=== PATIENT | female | born 1945 | race Caucasian/White ===

== ENCOUNTER 2018-04-02 13:26 | Emergency (ER) | payer OTHER, MEDICARE ==
[~2018-04-02] VITALS: Ht 149.9 cm; Wt 77.1 kg
[2018-04-02 13:53] VITALS: BP_SYST 146
--- NOTE | 2018-04-02 13:59 | NUR ---
Pt placed to ER waiting room in stable condition.
--- NOTE | 2018-04-02 14:57 | NUR ---
Swelling, numbness, dark discoloration to right foot with red spots to RLE x 1 month.
--- NOTE | 2018-04-02 14:57 | NUR ---
BROUGHT BACK TO BED #5, REPORT GIVEN TO SUMAYA
--- NOTE | 2018-04-02 15:00 | NUR ---
Dr. Calderon at bedside.
[2018-04-02] MEDS ORDERED: EPINEPHrine JECT 1 MG/10 ML SYR IM ONE (15:15)
[2018-04-02] MEDS ORDERED: EPINEPHrine 1 MG/ML AMP SUBCUT ONE (15:30)
[2018-04-02 15:34] LABS: BASOPHILS # (AUTO) 0.1 K/uL (0.0-0.2); BASOPHILS % (AUTO) 0.8 % (0.0-2.0); EOSINOPHILS # (AUTO) 0.2 K/uL (0.0-0.4); EOSINOPHILS % (AUTO) 2.2 % (0.0-4.0); HEMATOCRIT 44.1 % (36-48); HEMOGLOBIN 14.6 g/dL (12.0-16.0); LYMPHOCYTES # (AUTO) 1.8 K/uL (1.0-5.5); LYMPHOCYTES % (AUTO) 19.6 % (20.5-51.5); MEAN CORPUSCULAR HEMOGLOBIN 32 pg (27-31); MEAN CORPUSCULAR HGB CONC 33 % (32-36); MEAN CORPUSCULAR VOLUME 96 fL (79.0-98.0); MONOCYTES # (AUTO) 0.6 K/uL (0.0-1.0); MONOCYTES % (AUTO) 6.3 % (1.7-9.3); NEUTROPHILS # (AUTO) 6.3 K/uL (1.8-7.7); NEUTROPHILS % (AUTO) 71.1 % (40.0-70.0); PLATELET COUNT (AUTO) 348 K/uL (130-430); RED BLOOD CELL COUNT(AUTO) 4.61 MIL/uL (4.2-6.2); RED CELL DISTRIBUTION WIDTH 11.9 % (9.0-15.0)
[2018-04-02 15:42] LABS: ANION GAP 11 (5-15); CALCIUM 10.1 mg/dL (8.4-11.0); CHLORIDE 101 mmol/L (98-107); CREATININE 0.91 mg/dL (0.55-1.30); GLUCOSE 245 mg/dL (70-99); POTASSIUM 3.6 mmol/L (3.5-5.1); SODIUM SERUM 138 mmol/L (136-145); UREA NITROGEN, BLOOD 23 mg/dL (8-21)
[2018-04-02 15:45] LABS: PROTHROMBIN TIME 10.3 SECS (9.5-12.5)
[2018-04-02 15:47] LABS: ALANINE AMINOTRANSFERASE 21 U/L (12-78); ALBUMIN 3.8 g/dL (3.4-4.8); ASPARTATE AMINOTRANSFERASE 16 U/L (10-37); TOTAL BILIRUBIN 0.6 mg/dL (0.0-1.0)
[2018-04-02 16:40] VITALS: BP_SYST 132
--- NOTE | 2018-04-02 16:40 | NUR ---
Patient given written and verbal discharge instructions and verbalizes understanding. ER MD discussed with patient the results and treatment provided. Patient in stable condition. ID arm band removed. Rx of Benadryl and Prednisone given. Patient educated on pain management and to follow up with PMD. Pain Scale 2/10. Opportunity for questions provided and answered. Medication side effect fact sheet provided.
== END 2018-04-02 16:40 | disposition home or self-care (01) ==
LOC: SED 13:26
DX: R60.9 Edema, unspecified (principal); L25.9 Unspecified contact dermatitis, unspecified cause; I10 Essential (primary) hypertension; E11.9 Type 2 diabetes mellitus without complications; R94.31 Abnormal electrocardiogram [ECG] [EKG]
CPT/HCPCS: 36415; 71045; 80053; 83880; 84484; 85025; 85610; 85730; 93005; 96372; 99285; J0171 ×2